=== PATIENT | female | born 2000 | race African-American/Black ===

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

== ENCOUNTER 2021-07-31 04:49 | Emergency (ER) | payer BC | END 2021-07-31 06:17 | disposition home or self-care (01) | LOC: ERS 04:49 | DX: R07.89 Other chest pain (principal) | CPT/HCPCS: 71045; 93005 ==